=== PATIENT | female | born 1960 | race Hispanic/Latino ===

== ENCOUNTER 2017-01-13 13:12 | Observation (INO) | payer MEDICAID, OTHER ==
[2017-01-13 13:15] VITALS: BMI 26.5
[2017-01-13] MEDS ORDERED: Albuterol-Ipratrop 3 mg / 0.5 (3 ml) UD IH STA (14:05)
[2017-01-13 14:15] LABS: VENOUS BLOOD GAS BASE EXCESS 2.8 mmol/L (0.0-2.0); VENOUS BLOOD PH 7.36 (7.32-7.43)
--- NOTE | 2017-01-13 14:15 | ED PDOC ---
Arrival/HPI - General Chief Complaint: Chest Pain Time Seen by Provider: 01/13/17 13:35 - History of Present Illness Narrative History of Present Illness (Text): 01/13/17 13:40 A 56 year old female, whose history includes COPD, CHF, CAD, and early dementia , presents to the emergency department for intermittent "squeezing sharp" midsternal chest pain non-radiating, which began 3 days ago. The patient states the pain comes last for a few minutes then goes away. She admits to having a chronic cough and shortness of breath that worsens with cough.The patient also reports hot flashes to her face that make her dizzy and a headache for 2 weeks. She notes numbness to her left fingers which occurred only once and has already resolved itself. bilateral leg pain and swelling, but denies vomiting, diarrhea , fever, or any other complaints at this time. She admits to taking Motrin for the pain, but has not had any improvement. PMD: Dr. Szymanski in [facility] Time/Duration: < week (x 3 days ) Symptom Onset: Sudden Symptom Course: Unchanged, Intermittent Quality: Other ("squeezing sharp pain") Activities at Onset: Rest, Light Context: Home Past Medical History - Provider Review Nursing Documentation Reviewed: Yes - Infectious Disease Hx of Infectious Diseases: None - Reproductive Menopause: Yes - Cardiac Hx Cardiac Disorders: Yes Hx Congestive Heart Failure: Yes - Pulmonary Hx Respiratory Disorders: No - Neurological Hx Neurological Disorder: No - HEENT Hx HEENT Disorder: No - Renal Hx Renal Disorder: No - Endocrine/Metabolic Hx Endocrine Disorders: No - Hematological/Oncological Hx Blood Disorders: No - Integumentary Hx Dermatological Disorder: No - Musculoskeletal/Rheumatological Hx Musculoskeletal Disorders: No - Gastrointestinal Hx Gastrointestinal Disorders: No - Genitourinary/Gynecological Hx Genitourinary Disorders: No - Psychiatric Hx Psychophysiologic Disorder: No Hx Substance Use: No - Surgical History Hx Appendectomy: Yes (40 years ago) Hx Cardiac Catheterization: Yes (2010) Other/Comment: 28 years ago - Anesthesia Hx Anesthesia: No Hx Anesthesia Reactions: No Hx Malignant Hyperthermia: No Family/Social History - Physician Review Nursing Documentation Reviewed: Yes Family/Social History: No Known Family HX Smoking Status: Former Smoker Hx Alcohol Use: No Hx Substance Use: No Allergies/Home Meds Allergies/Adverse Reactions: Allergies Penicillins Allergy (Verified 01/13/17 14:03) ANGIOEDEMA Home Medications: Home Meds Medication Instructions Recorded Confirmed Aspirin 81 mg PO DAILY 11/06/14 01/13/17 Review of Systems - Physician Review All systems were reviewed & negative as marked: Yes - Review of Systems Constitutional: Other (hot flashes to face) Respiratory: Cough Cardiovascular: Chest Pain (intermittent midsternal chest pain non radiating) Gastrointestinal: absent: Diarrhea, Vomiting Musculoskeletal: Other (bilateral leg and ankle pain with swelling ) Neurological: Dizziness (with hot flashes) Physical Exam Vital Signs Reviewed: Yes Vital Signs Temp Pulse Resp BP Pulse Ox 01/13/17 15:27 62 18 124/70 97 01/13/17 14:30 73 16 145/77 98 01/13/17 14:17 150/78 01/13/17 13:27 98.2 F 78 18 150/78 98 01/13/17 13:15 98.3 F 96 H 20 171/82 H 97 Temperature: Afebrile Blood Pressure: Hypertensive Pulse: Tachycardic Respiratory Rate: Normal Appearance: Positive for: Well-Appearing, Non-Toxic, Comfortable Pain Distress: None Mental Status: Positive for: Alert and Oriented X 3 - Systems Exam Head: Present: Atraumatic, Normocephalic Pupils: Present: PERRL Extroacular Muscles: Present: EOMI Conjunctiva: Present: Normal Mouth: Present: Moist Mucous Membranes Pharnyx: Present: Normal Neck: Present: Normal Range of Motion Respiratory/Chest: Present: Good Air Exchange, Rales (? rales vs rhonchi), Rhonchi (right lung field ). No: Respiratory Distress, Accessory Muscle Use Cardiovascular: Present: Regular Rate and Rhythm, Normal S1, S2. No: Murmurs Abdomen: Present: Normal Bowel Sounds. No: Tenderness, Distention, Peritoneal Signs Back: Present: Normal Inspection Upper Extremity: Present: Normal Inspection. No: Cyanosis, Edema Lower Extremity: Present: Normal Inspection. No: Edema Neurological: Present: GCS=15, CN II-XII Intact, Speech Normal Skin: Present: Warm, Dry, Normal Color. No: Rashes Psychiatric: Present: Alert, Oriented x 3, Normal Insight, Normal Concentration Medical Decision Making ED Course and Treatment: 01/13/17 14:00 Impression: A 56 year old female with chest pain, cough, headache Differential Diagnosis included but are not limited to: Chest Pain r/o ACS vs COPD vs CHF vs PNA Plan: -- VBG -- EKG -- Chest X-ray -- Labs -- Duoneb, Lasix, Solu-medrol -- Reassess and disposition Prior Visits: Notes and results from previous visits were reviewed. Patient was last seen in the emergency department on Progress Notes: 01/13/17 14:10 EKG: Ordered, reviewed, and independently interpreted the EKG. Rate : 70 BPM Rhythm : NSR Interpretation : No ST-segment elevations or depressions, no T-wave inversions, normal intervals. 01/13/17 14:36 Chest X-ray Chest X-ray interpreted by me is normal with no findings. Patient started having a headache in the ED with blurry vision. CT head was ordered. NIHSS documented is still zero. 01/13/17 15:37 Patient's CXR was negative for PNA. Lungs on reevaluation were clear. Patient's CT head negative. Neuro exam unchanged. Aspirin given. Case discussed with Dr. Heaton who will accept admission. - Lab Interpretations Lab Results: 01/13/17 13:30 01/13/17 13:30 Lab Results 01/13/17 13:30: Sodium 140, Chloride 103, Potassium 3.8, Carbon Dioxide 30, Anion Gap 11, BUN 19, Creatinine 0.7, Est GFR ( Amer) > 60, Est GFR (Non- Af Amer) > 60, Random Glucose 100, Calcium 9.7, Lactate Dehydrogenase 444, Total Creatine Kinase 83, Troponin I < 0.01, NT-Pro-B Natriuret Pep 92.5 01/13/17 13:30: pO2 50, VBG pH 7.36, VBG pCO2 52.0, VBG HCO3 29.4 H, VBG Total CO2 31.0 H, VBG O2 Sat (Calc) 88.0 H, VBG Base Excess 2.8 H, VBG Potassium 3.9, Sodium 140.0, Chloride 105.0, Glucose 99, Lactate 1.3, FiO2 21.0, Venous Blood Potassium 3.9 01/13/17 13:30: WBC 8.1 D, RBC 4.31, Hgb 12.9, Hct 38.8, MCV 90.0, MCH 29.9, MCHC 33.2, RDW 13.0, Plt Count 335, MPV 9.3, Gran % 55.8, Lymph % (Auto) 34.9, [place] % (Auto) 6.3 H, Eos % (Auto) 2.6, Baso % (Auto) 0.4, Gran # 4.52, Lymph # 2.8, [place] # 0.5, Eos # 0.2, Baso # 0.03 - RAD Interpretation Radiology Orders: 01/13/17 14:04 CHEST PORTABLE [RAD] Stat 01/13/17 14:34 HEAD W/O CONTRAST [CT] Stat - Medication Orders Current Medication Orders: Acetaminophen (Tylenol 325mg Tab) 650 mg PO Q6H PRN PRN Reason: Fever >100.4 F Last Admin: 01/13/17 21:36 Dose: 650 mg Albuterol/Ipratropium (Duoneb 3 Mg/0.5 Mg (3 Ml) Ud) 3 ml IH [id number] MANOJ Last Admin: 01/13/17 19:40 Dose: 3 ml Aspirin (Aspirin Chewable) 81 mg PO DAILY MANOJ Enoxaparin Sodium (Lovenox) 30 mg SC DAILY MANOJ PRN Reason: Protocol Famotidine (Pepcid) 40 mg PO HS MANOJ Last Admin: 01/13/17 21:36 Dose: 40 mg Discontinued Medications Albuterol/Ipratropium (Duoneb 3 Mg/0.5 Mg (3 Ml) Ud) 3 ml IH STAT STA Stop: 01/13/17 14:06 Last Admin: 01/13/17 14:18 Dose: 3 ml Aspirin (Ecotrin) 162 mg PO STAT STA Stop: 01/13/17 16:39 Last Admin: 01/13/17 16:47 Dose: 162 mg Furosemide (Lasix) 40 mg IVP STAT STA Stop: 01/13/17 14:04 Last Admin: 01/13/17 14:17 Dose: 40 mg MAR Blood Pressure Document 01/13/17 14:17 SE (Rec: 01/13/17 14:18 [id number]) Blood Pressure Blood Pressure (100/60-150/90) 150/78 IVP Administration Document 01/13/17 14:17 SE (Rec: 01/13/17 14:18 [id number]) Charges for Administration # of IVP Administrations 1 Ketorolac Tromethamine (Toradol) 30 mg IVP STAT STA Stop: 01/13/17 15:41 Last Admin: 01/13/17 15:45 Dose: 30 mg MAR Pain Assessment Document 01/13/17 15:45 SE (Rec: 01/13/17 15:49 SE [id number]) Pain Reassessment Is this a pain reassessment? No Sleep Is patient sleeping during reassessment? No Presence of Pain Presence of Pain Yes Pain Scale Used Pain Scale Used Numeric Location Pain Location Body Architectural Modeler IVP Administration Document 01/13/17 15:45 SE (Rec: 01/13/17 15:49 SE [id number]) Charges for Administration # of IVP Administrations 1 Methylprednisolone (Solu-Medrol) 125 mg IVP STAT STA Stop: 01/13/17 14:04 Last Admin: 01/13/17 14:18 Dose: 125 mg IVP Administration Document 01/13/17 14:18 SE (Rec: 01/13/17 14:18 SE [id number]) Charges for Administration # of IVP Administrations 1 Metoclopramide HCl (Reglan) 10 mg IVP STAT STA Stop: 01/13/17 15:41 Last Admin: 01/13/17 15:50 Dose: 10 mg IVP Administration Document 01/13/17 15:50 SE (Rec: 01/13/17 15:50 SE [id number]) Charges for Administration # of IVP Administrations 1 NIHSS Scale (Rosanky) Time Performed: 13:40 - How Severe is the Stoke Baseline Level of Consciousness: 0=Alert LOC to Questions: 0=Both comments correct LOC to commands: 0=Obeys both correctly Best Gaze: 0=Normal Visual: 0=No visual loss Facial: 0=Normal Motor Arm - Left: 0=No drift Motor Arm - Right: 0=No drift Motor Leg - Left: 0=No drift Motor Leg - Right: 0=No drift Limb Ataxia: 0=Absent Sensory: 0=Normal Best Language: 0=No aphasia Dysarthia: 0=Normal articulation Extinction & Inattention (Neglect): 0=Normal, no object Score: 0 Risk Level: No Stroke Risk - Scribe Statement The provider has reviewed the documentation as recorded by the Jaz Drew Provider Scribe Attestation: All medical record entries made by the Jaz were at my direction and personally dictated by me. I have reviewed the chart and agree that the record accurately reflects my personal performance of the history, physical exam, medical decision making, and the department course for this patient. I have also personally directed, reviewed, and agree with the discharge instructions and disposition. Disposition/Present on Arrival - Present on Arrival Any Indicators Present on Arrival: No History of DVT/PE: No History of Uncontrolled Diabetes: No Urinary Catheter: No History of Decub. Ulcer: No History Surgical Site Infection Following: None - Disposition Have Diagnosis and Disposition been Completed?: Yes Diagnosis: COPD (chronic obstructive pulmonary disease), Chest pain, Headache Disposition: HOSPITALIZED Disposition Time: 15:37 Patient Plan: Admission Condition: GUARDED
[2017-01-13 14:25] LABS: BLOOD UREA NITROGEN 19 mg/dL (7-21); CALCIUM 9.7 mg/dL (8.4-10.5); CARBON DIOXIDE 30 mmol/L (21-33); CHLORIDE 103 mmol/L (98-107); GFR AFRICAN-AMERICAN > 60; GLUCOSE,RANDOM 100 mg/dL (70-110); POTASSIUM 3.8 mmol/L (3.6-5.0); SODIUM 140 mmol/L (132-148)
[2017-01-13 14:36] LABS: BASO # 0.03 K/mm3 (0.0-2.0); BASO % 0.4 % (0.0-3.0); EOS # 0.2 (0.0-0.7); EOS % 2.6 % (1.5-5.0); GRAN # 4.52 (1.4-6.5); GRAN % 55.8 % (50.0-68.0); HEMATOCRIT 38.8 % (36.0-48.0); LYMPH # 2.8 (1.2-3.4); LYMPH % 34.9 % (22.0-35.0); MEAN CORPUSCULAR HEMOGLOBIN 29.9 pg (25.0-35.0); MEAN CORPUSCULAR HGB CONC 33.2 g/dl (31.0-37.0); MEAN PLATELET VOLUME 9.3 fl (7.0-11.0); MONO # 0.5 (0.1-0.6); MONO % 6.3 % (1.0-6.0); WHITE BLOOD COUNT 8.1 10^3/ul (4.5-11.0)
[2017-01-13 14:43] LABS: TROPONIN I < 0.01 ng/mL
--- NOTE | 2017-01-13 15:16 | RAD ---
HISTORY: chest pain, sob COMPARISON: 11/06/2014 FINDINGS: LUNGS: No active pulmonary disease. PLEURA: No significant pleural effusion identified, no pneumothorax apparent. CARDIOVASCULAR: Normal. OSSEOUS STRUCTURES: No significant abnormalities. VISUALIZED UPPER ABDOMEN: Normal. OTHER FINDINGS: None. IMPRESSION: No active disease.
--- NOTE | 2017-01-13 15:29 | CT ---
PROCEDURE: CT HEAD WITHOUT CONTRAST. HISTORY: headache COMPARISON: None available. TECHNIQUE: Axial computed tomography images were obtained through the head/brain without intravenous contrast. Radiation dose: Total exam DLP = 629 mGy-cm. This CT exam was performed using one or more of the following dose reduction techniques: Automated exposure control, adjustment of the mA and/or kV according to patient size, and/or use of iterative reconstruction technique. FINDINGS: HEMORRHAGE: No intracranial hemorrhage. BRAIN: No mass effect or edema. No atrophy or chronic microvascular ischemic changes. VENTRICLES: Unremarkable. No hydrocephalus. CALVARIUM: Unremarkable. PARANASAL SINUSES: Unremarkable as visualized. No significant inflammatory changes. MASTOID AIR CELLS: Unremarkable as visualized. No inflammatory changes. OTHER FINDINGS: None. IMPRESSION: No acute findings
--- NOTE | 2017-01-13 17:10 | CP.PCM.HP ---
<Liv Dye - Last Filed: 01/13/17 17:06> History of Present Illness - History of Present Illness History of Present Illness: CC: I have chest pain, headache and leg pain and swelling. Patient is a 56 y/o F with PMH of COPD, CAD? CHF? Dyslipidemia presenting to [facility] with sharp substernal chest pain for 3 days. Patient states the chest pain last seconds when its there, non radiating, non reproducible. Patient states she has been experiencing head ache on/off relieved with ibuprofen for 3 days. Patient's daughter was at the bed side, states patient actually has been complaining of the headache for 2 weeks. Patient also complaints lower extremities edema and pain. States the pain is mostly at the dorsal aspect of the legs, and hurt when she stands up. Patient denies pillow orthpnea, denies exertional dyspnea. Patient states she only gets short of breath after walking multiple blocks. Patient had stress test and cardiac cath at [facility] in 2011 and was told it was normal. Patient was at [facility] back in 2014, with normal echo and had lipid of 231. Patient took 81 mg of aspirin this AM. This history of htn, diabetes. Doesn't take any medications for the dyslipidemia. Patient states she has chronic dry cough due to her copd. ROS: Denies weakness, dizziness, palpitations, night sweats, n/v/d, fever or chills. Admits to increased in urinary frequency, Denies dysurea. In the ED, patient had an episode of htn with BP of 171/82, labs were normal, including normal pro bnp and troponin. Patient was giving duoneb treatment, aspirin, and Lasix. PMH: COPD, questionable CAD and CHF. PSH: , appendectomy, cardiac cath. FMH: Mom and dad from CVA and CHF, Bother has DM, brother and sister had CAD and CABG in their 50s and 60s. Social: former tobacco abuse, quit 12 years ago, denies alcohol, or illicit drug use. Lives with daughter. Allergy: penicillins Home meds: ventolin, advair Present on Admission - Present on Admission Any Indicators Present on Admission: No History of DVT/PE: No History of Uncontrolled Diabetes: No Urinary Catheter: No Decubitus Ulcer Present: No History Surgical Site Infection Following: None Review of Systems - Review of Systems All systems: reviewed and no additional remarkable complaints except Review of Systems: As per HPI. Past Patient History - Infectious Disease Hx of Infectious Diseases: None - Tetanus Immunizations Tetanus Immunization: Unknown - Past Medical History & Family History Past Medical History?: Yes - Past Social History Smoking Status: Former Smoker Alcohol: None Drugs: Denies Home Situation {Lives}: With Family - CARDIAC Hx Cardiac Disorders: Yes Hx Congestive Heart Failure: Yes - PULMONARY Hx Respiratory Disorders: No - NEUROLOGICAL Hx Neurological Disorder: No - HEENT Hx HEENT Problems: No - RENAL Hx Chronic Kidney Disease: No - ENDOCRINE/METABOLIC Hx Endocrine Disorders: No - HEMATOLOGICAL/ONCOLOGICAL Hx Blood Disorders: No - INTEGUMENTARY Hx Dermatological Problems: No - MUSCULOSKELETAL/RHEUMATOLOGICAL Hx Musculoskeletal Disorders: No - GASTROINTESTINAL Hx Gastrointestinal Disorders: No - GENITOURINARY/GYNECOLOGICAL Hx Genitourinary Disorders: No - PSYCHIATRIC Hx Psychophysiologic Disorder: No Hx Substance Use: No - SURGICAL HISTORY Hx Appendectomy: Yes (40 years ago) Hx Cardiac Catheterization: Yes (2010) Other/Comment: 28 years ago - ANESTHESIA Hx Anesthesia: No Hx Anesthesia Reactions: No Hx Malignant Hyperthermia: No Meds Home Medications: Home Medication List Medication Instructions Recorded Confirmed Type Albuterol HFA [Ventolin HFA 90 0.09 mg IH Q6H PRN #1 puff 01/14/17 Rx mcg/actuation (8 g)] Aspirin [Aspirin Chewable] 81 mg PO DAILY chew 01/14/17 Rx Atorvastatin [Lipitor] 10 mg PO DIN #7 tab 01/14/17 Rx Fluticasone/Salmeterol [Advair 1 each IH Q12H #1 blst.w.dev 01/14/17 Rx 250-50 Diskus] Furosemide [Lasix] 20 mg PO DAILY #7 tablet 01/14/17 Rx Allergies/Adverse Reactions: Allergies Allergy/AdvReac Type Severity Reaction Status Date / Time Penicillins Allergy ANGIOEDEMA Verified 01/13/17 14:03 Physical Exam - Constitutional Appears: No Acute Distress - Head Exam Head Exam: ATRAUMATIC, NORMAL INSPECTION, NORMOCEPHALIC - Eye Exam Eye Exam: EOMI, Normal appearance, PERRL. absent: Scleral icterus Pupil Exam: NORMAL ACCOMODATION, PERRL - ENT Exam ENT Exam: Mucous Membranes Dry - Neck Exam Neck exam: Positive for: Normal Inspection - Respiratory Exam Respiratory Exam: Clear to Auscultation Bilateral, NORMAL BREATHING PATTERN. absent: Rales, Rhonchi, Wheezes, Respiratory Distress, Stridor - Cardiovascular Exam Cardiovascular Exam: REGULAR RHYTHM, RRR, +S1, +S2. absent: Bradycardia, Tachycardia, Irregular Rhythm, Systolic Murmur - GI/Abdominal Exam GI & Abdominal Exam: Normal Bowel Sounds, Soft. absent: Distended, Firm, Guarding, Organomegaly, Rebound, Tenderness - Extremities Exam Extremities exam: Positive for: full ROM, normal capillary refill, normal inspection, pedal pulses present. Negative for: calf tenderness, joint swelling , pedal edema, tenderness - Back Exam Back exam: NORMAL INSPECTION. absent: tenderness, vertebral tenderness - Neurological Exam Neurological exam: Alert, CN II-XII Intact, Normal Gait, Oriented x3, Reflexes Normal Additional comments: No motor sensory deficit in the upper and lower extremities leeanne. - Psychiatric Exam Psychiatric exam: Normal Affect, Normal Mood - Skin Skin Exam: Dry, Intact, Normal Color, Warm Results - Vital Signs Recent Vital Signs: Last Vital Signs Temp 98.2 F 01/13/17 13:27 Pulse 62 01/13/17 15:27 Resp 18 01/13/17 15:27 BP 124/70 01/13/17 15:27 Pulse Ox 97 01/13/17 15:27 - Labs Result Diagrams: 01/13/17 13:30 01/13/17 13:30 - EKG Data EKG Interpreted by: Myself EKG shows normal: Sinus rhythm Rate: Normal (No specific ST/T waves changes. ) Assessment & Plan - Assessment and Plan (Free Text) Assessment: Patient is a 56 y/o with PMH of COPD, questionable CAD and CHF, former tobacco abuse presenting with substernal chest pain, headache and lower extremities edema. Plan: 1) Atypical chest pain - R/O ACS - troponin negative x1, will continue to trend - Ekg with no ST waves elevation or depression, will trend. - No acute finding on chest x-ray. - monitor on tele - will obtain tsh and lipid panel - s/p a dose of asa in the ER - Cardio consulted - Will obtain echo 2) Headache, r/o cva, r/o hypertensive urgency - currently resolved - CT head in the ED with no acute changes - Tylenol prn for headache. - Repeat BP normal, will monitor and start htn meds prn. 3) Subjective lower extremities edema - no lower extremities noted on physical exam, and pro bnp is normal - Will continue to monitor for now 4) h/o dyslipidemia - will obtain lipid panel 5) COPD- stable, duoneb q6hs 6) DVT/GI prophylaxis: Lovenox sc and Pepcid. Patient seen, examined and case discussed with Dr Lyons. - Date & Time Date: 01/13/17 Time: 16:45 <Akhil Alex - Last Filed: 01/14/17 18:12> Results - Vital Signs Recent Vital Signs: Last Vital Signs Temp 97.6 F 01/14/17 16:51 Pulse 75 01/14/17 16:51 Resp 20 01/14/17 16:51 BP 109/60 01/14/17 17:33 Pulse Ox 96 01/14/17 16:51 - Labs Result Diagrams: 01/14/17 03:00 01/14/17 03:00 Labs: Laboratory Results - last 24 hr 01/13/17 01/13/17 01/13/17 18:56 19:00 19:24 WBC RBC Hgb Hct MCV MCH MCHC RDW Plt Count MPV Gran % Lymph % (Auto) [place] % (Auto) Eos % (Auto) Baso % (Auto) Gran # Lymph # [place] # Eos # Baso # D-Dimer, Quantitative Sodium Potassium Chloride Carbon Dioxide Anion Gap BUN Creatinine Est GFR ( Amer) Est GFR (Non-Af Amer) Random Glucose Calcium Total Bilirubin AST ALT Alkaline Phosphatase Troponin I < 0.01 Total Protein Albumin Globulin Albumin/Globulin Ratio Triglycerides Cholesterol LDL Cholesterol Direct HDL Cholesterol TSH 3rd Generation 0.61 Urine Opiates Screen Urine Methadone Screen Ur Barbiturates Screen Ur Phencyclidine Scrn Ur Amphetamines Screen U Benzodiazepines Scrn U Oth Cocaine Metabols U Cannabinoids Screen Influenza Typ A,B (EIA) Negative for flu a/b 01/14/17 01/14/17 01/14/17 03:00 03:00 03:00 WBC 8.2 RBC 4.31 Hgb 12.9 Hct 38.3 MCV 88.9 MCH 29.9 MCHC 33.7 RDW 13.1 Plt Count 348 MPV 9.4 Gran % 81.3 H Lymph % (Auto) 17.5 L [place] % (Auto) 1.2 Eos % (Auto) 0.0 L Baso % (Auto) 0.0 Gran # 6.70 H Lymph # 1.4 [place] # 0.1 Eos # 0.0 Baso # 0.00 D-Dimer, Quantitative Sodium 140 Potassium 4.2 Chloride 101 Carbon Dioxide 29 Anion Gap 14 BUN 22 H Creatinine 0.7 Est GFR ( Amer) > 60 Est GFR (Non-Af Amer) > 60 Random Glucose 156 H Calcium 9.9 Total Bilirubin 0.6 AST 28 ALT 28 Alkaline Phosphatase 118 Troponin I < 0.01 Total Protein 8.3 Albumin 4.4 Globulin 3.9 Albumin/Globulin Ratio 1.1 Triglycerides 40 Cholesterol 226 H LDL Cholesterol Direct 137 H HDL Cholesterol 71 H TSH 3rd Generation Urine Opiates Screen Urine Methadone Screen Ur Barbiturates Screen Ur Phencyclidine Scrn Ur Amphetamines Screen U Benzodiazepines Scrn U Oth Cocaine Metabols U Cannabinoids Screen Influenza Typ A,B (EIA) 01/14/17 01/14/17 14:00 14:20 WBC RBC Hgb Hct MCV MCH MCHC RDW Plt Count MPV Gran % Lymph % (Auto) [place] % (Auto) Eos % (Auto) Baso % (Auto) Gran # Lymph # [place] # Eos # Baso # D-Dimer, Quantitative < 200 Sodium Potassium Chloride Carbon Dioxide Anion Gap BUN Creatinine Est GFR ( Amer) Est GFR (Non-Af Amer) Random Glucose Calcium Total Bilirubin AST ALT Alkaline Phosphatase Troponin I Total Protein Albumin Globulin Albumin/Globulin Ratio Triglycerides Cholesterol LDL Cholesterol Direct HDL Cholesterol TSH 3rd Generation Urine Opiates Screen Negative Urine Methadone Screen Negative Ur Barbiturates Screen Negative Ur Phencyclidine Scrn Negative Ur Amphetamines Screen Negative U Benzodiazepines Scrn Negative U Oth Cocaine Metabols Negative U Cannabinoids Screen Negative Influenza Typ A,B (EIA) Attending/Attestation - Attestation I have personally seen and examined this patient.: Yes I have fully participated in the care of the patient.: Yes I have reviewed all pertinent clinical information: Yes Notes (Text): I have seen and examined the patient at bedside. Agree with the above note with the following additions/ exceptions: Briefly this is 56 year old female with history of COPD, CAD? CHF? Dyslipidemia who presented today for evaluation of CP. Patient will be observed in telemetry. She had normal cardiac cath at [facility] in 2010 and had normal echo in 2014. Patient has strong FH of CAD. Last time she smoked was 12 years ago. Patient suffers from frequent COPD exacerbations which is being managed by PMD. We will monitor serial cardiac iso , ekg, lipid panel, echo and cardiology consult. Discussed in detail with the patient and her daughter who is EMT. Upon discharge patient will follow up with PMD of choice or [facility] clinic. Dr Akhil Alex
[2017-01-13] MEDS: Albuterol-Ipratrop 3 mg / 0.5 (3 ml) UD IH SCH (19:40)
[2017-01-14] MEDS: Albuterol-Ipratrop 3 mg / 0.5 (3 ml) UD IH SCH ×3 (01:49→13:30)
[2017-01-14 03:30] LABS: ALB/GLOB RATIO 1.1 (1.1-1.8); ALKALINE PHOSPHATASE 118 U/L (38-126); ALT/SGPT 28 U/L (7-56); AST/SGOT 28 U/L (14-36); BILIRUBIN,TOTAL 0.6 mg/dL (0.2-1.3); BLOOD UREA NITROGEN 22 mg/dL (7-21); CALCIUM 9.9 mg/dL (8.4-10.5); CARBON DIOXIDE 29 mmol/L (21-33); CHLORIDE 101 mmol/L (98-107); CHOLESTEROL 226 mg/dL (130-200); GFR AFRICAN-AMERICAN > 60; GLUCOSE,RANDOM 156 mg/dL (70-110); POTASSIUM 4.2 mmol/L (3.6-5.0); SODIUM 140 mmol/L (132-148); TOTAL PROTEIN 8.3 g/dL (5.8-8.3)
[2017-01-14 04:00] LABS: GRAN # 6.7 (1.4-6.5); GRAN % 81.3 % (50.0-68.0); HEMATOCRIT 38.3 % (36.0-48.0); LYMPH # 1.4 (1.2-3.4); LYMPH % 17.5 % (22.0-35.0); MEAN CELL VOLUME 88.9 fl (80.0-105.0); MEAN CORPUSCULAR HEMOGLOBIN 29.9 pg (25.0-35.0); MEAN CORPUSCULAR HGB CONC 33.7 g/dl (31.0-37.0); MEAN PLATELET VOLUME 9.4 fl (7.0-11.0); MONO # 0.1 (0.1-0.6); MONO % 1.2 % (1.0-6.0); RED CELL DISTRIBUTION WIDTH 13.1 % (11.5-14.5); WHITE BLOOD COUNT 8.2 10^3/ul (4.5-11.0)
[2017-01-14 09:46] VITALS: RESP 20; TEMP 97.6
--- NOTE | 2017-01-14 09:56 | CARD ---
APPROVED REPORT EKG Measurement Heart [id number] <Conclusion> Normal sinus rhythm Normal ECG
[2017-01-14] MEDS ORDERED: Enoxaparin 30 mg Syringe SC SCH (10:00)
--- NOTE | 2017-01-14 14:58 | CP.PCM.DIS ---
<Carlos Monae - Last Filed: 01/14/17 16:22> Provider - Provider Date of Admission: 01/13/17 15:37 Attending physician: Akhil Alex MD Primary care physician: NO PRIMARY CARE PROVIDER Consults: Cardio - Dr. White Time Spent in preparation of Discharge (in minutes): 45 Diagnosis - Discharge Diagnosis (1) COPD (chronic obstructive pulmonary disease) Status: Chronic Priority: Low (2) Chest pain Status: Acute Priority: Low (3) CHF (congestive heart failure) Status: Chronic Priority: Low Hospital Course - Lab Results Lab Results: Most Recent Lab Values WBC 8.2 10^3/ul (4.5-11.0) 01/14/17 03:00 RBC 4.31 10^6/uL (3.5-6.1) 01/14/17 03:00 Hgb 12.9 g/dL (12.0-16.0) 01/14/17 03:00 Hct 38.3 % (36.0-48.0) 01/14/17 03:00 MCV 88.9 fl (80.0-105.0) 01/14/17 03:00 MCH 29.9 pg (25.0-35.0) 01/14/17 03:00 MCHC 33.7 g/dl (31.0-37.0) 01/14/17 03:00 RDW 13.1 % (11.5-14.5) 01/14/17 03:00 Plt Count 348 10^3/uL (120.0-450.0) 01/14/17 03:00 MPV 9.4 fl (7.0-11.0) 01/14/17 03:00 Gran % 81.3 % (50.0-68.0) H 01/14/17 03:00 Lymph % (Auto) 17.5 % (22.0-35.0) L 01/14/17 03:00 Harney % (Auto) 1.2 % (1.0-6.0) 01/14/17 03:00 Eos % (Auto) 0.0 % (1.5-5.0) L 01/14/17 03:00 Baso % (Auto) 0.0 % (0.0-3.0) 01/14/17 03:00 Gran # 6.70 (1.4-6.5) H 01/14/17 03:00 Lymph # 1.4 (1.2-3.4) 01/14/17 03:00 Harney # 0.1 (0.1-0.6) 01/14/17 03:00 Eos # 0.0 (0.0-0.7) 01/14/17 03:00 Baso # 0.00 K/mm3 (0.0-2.0) 01/14/17 03:00 D-Dimer, Quantitative < 200 ng/mL (0-243) 01/14/17 14:00 pO2 50 mm/Hg (30-55) 01/13/17 13:30 VBG pH 7.36 (7.32-7.43) 01/13/17 13:30 VBG pCO2 52.0 (40-60) 01/13/17 13:30 VBG HCO3 29.4 mmol/l (21-28) H 01/13/17 13:30 VBG Total CO2 31.0 mmol.L (22-28) H 01/13/17 13:30 VBG O2 Sat (Calc) 88.0 % (40-65) H 01/13/17 13:30 VBG Base Excess 2.8 mmol/L (0.0-2.0) H 01/13/17 13:30 VBG Potassium 3.9 mmol/L (3.6-5.2) 01/13/17 13:30 Sodium 140.0 mmol/L (132-148) 01/13/17 13:30 Chloride 105.0 mmol/L (98-107) 01/13/17 13:30 Glucose 99 mg/dl (65-105) 01/13/17 13:30 Lactate 1.3 mmol/L (0.7-2.1) 01/13/17 13:30 FiO2 21.0 % 01/13/17 13:30 Sodium 140 mmol/L (132-148) 01/14/17 03:00 Potassium 4.2 mmol/L (3.6-5.0) 01/14/17 03:00 Chloride 101 mmol/L (98-107) 01/14/17 03:00 Carbon Dioxide 29 mmol/L (21-33) 01/14/17 03:00 Anion Gap 14 (10-20) 01/14/17 03:00 BUN 22 mg/dL (7-21) H 01/14/17 03:00 Creatinine 0.7 mg/dl (0.7-1.2) 01/14/17 03:00 Est GFR ( Amer) > 60 01/14/17 03:00 Est GFR (Non-Af Amer) > 60 01/14/17 03:00 Random Glucose 156 mg/dL (70-110) H 01/14/17 03:00 Calcium 9.9 mg/dL (8.4-10.5) 01/14/17 03:00 Total Bilirubin 0.6 mg/dL (0.2-1.3) 01/14/17 03:00 AST 28 U/L (14-36) 01/14/17 03:00 ALT 28 U/L (7-56) 01/14/17 03:00 Alkaline Phosphatase 118 U/L (38-126) 01/14/17 03:00 Lactate Dehydrogenase 444 U/L (333-699) 01/13/17 13:30 Total Creatine Kinase 83 U/L (35-230) 01/13/17 13:30 Troponin I < 0.01 ng/mL 01/14/17 03:00 NT-Pro-B Natriuret Pep 92.5 pg/mL (0-450) 01/13/17 13:30 Total Protein 8.3 g/dL (5.8-8.3) 01/14/17 03:00 Albumin 4.4 g/dL (3.0-4.8) 01/14/17 03:00 Globulin 3.9 gm/dL 01/14/17 03:00 Albumin/Globulin Ratio 1.1 (1.1-1.8) 01/14/17 03:00 Triglycerides 40 mg/dL (35-160) 01/14/17 03:00 Cholesterol 226 mg/dL (130-200) H 01/14/17 03:00 LDL Cholesterol Direct 137 mg/dL (0-129) H 01/14/17 03:00 HDL Cholesterol 71 mg/dL (29-60) H 01/14/17 03:00 TSH 3rd Generation 0.61 mIU/mL (0.46-4.68) 01/13/17 19:00 Venous Blood Potassium 3.9 mmol/L (3.6-5.2) 01/13/17 13:30 Influenza Typ A,B (EIA) Negative for flu a/b (NEGATIVE) 01/13/17 18:56 - Hospital Course Hospital Course: 56 y/o with PMH of COPD, questionable CAD and CHF, and former tobacco abuse presenting with atypical chest pain, headache, and lower extremity edema. Pt had troponins negative x3. EKG with no ST changes. Chest x-ray was normal with no active disease. Patient had CT head which showed no acute abnormalities. Pt was found to have elevated cholesterol and LDL on lipid panel and was started on Lipitor 10 mg daily. Pt had echocardiogram performed which showed mild diastolic dysfunction (please see official report). Pt was examined by boot repairer, Dr. White, who recommended a D-dimer and UDS. Both were found to be negative. Cardiology recommended patient be discharged on Lasix 20 mg daily. Pt will follow up with PMD and cardiology. Discharge Exam - Head Exam Head Exam: ATRAUMATIC, NORMAL INSPECTION, NORMOCEPHALIC - Respiratory Exam Respiratory Exam: NORMAL BREATHING PATTERN, UNREMARKABLE - Cardiovascular Exam Cardiovascular Exam: RRR, +S1, +S2 - GI/Abdominal Exam GI & Abdominal Exam: Normal Bowel Sounds, Soft. absent: Tenderness - Extremities Exam Extremities exam: normal inspection - Neurological Exam Neurological exam: Alert, CN II-XII Intact, Oriented x3 - Psychiatric Exam Psychiatric exam: Normal Affect, Normal Mood - Skin Skin Exam: Intact, Normal Color, Warm Discharge Plan - Discharge Medications Prescriptions: Albuterol HFA [Ventolin HFA 90 mcg/actuation (8 g)] 0.09 mg IH Q6H PRN #1 puff PRN Reason: Shortness Of Breath Atorvastatin [Lipitor] 10 mg PO DIN #7 tab Fluticasone/Salmeterol [Advair 250-50 Diskus] 1 each IH Q12H #1 blst.w.dev Furosemide [Lasix] 20 mg PO DAILY #7 tablet - Follow Up Plan Condition: GUARDED Disposition: HOME/ ROUTINE Instructions: Chest Pain (DC) Additional Instructions: Follow up with PMD within 1 week Follow up with boot repairer Take Lasix and Lipitor as prescribed Please return to hospital if symptoms reoccur or worsen Referrals: PCP,NO [Primary Care Provider] - Acuna,Archana A, ENVIRONMENT ARTIST-C [Advanced Practice Nurse] - <Akhil Alex - Last Filed: 01/14/17 18:17> Provider - Provider Date of Admission: 01/13/17 15:37 Attending physician: Akhil Alex MD Primary care physician: NO PRIMARY CARE PROVIDER Hospital Course - Lab Results Lab Results: Most Recent Lab Values WBC 8.2 10^3/ul (4.5-11.0) 01/14/17 03:00 RBC 4.31 10^6/uL (3.5-6.1) 01/14/17 03:00 Hgb 12.9 g/dL (12.0-16.0) 01/14/17 03:00 Hct 38.3 % (36.0-48.0) 01/14/17 03:00 MCV 88.9 fl (80.0-105.0) 01/14/17 03:00 MCH 29.9 pg (25.0-35.0) 01/14/17 03:00 MCHC 33.7 g/dl (31.0-37.0) 01/14/17 03:00 RDW 13.1 % (11.5-14.5) 01/14/17 03:00 Plt Count 348 10^3/uL (120.0-450.0) 01/14/17 03:00 MPV 9.4 fl (7.0-11.0) 01/14/17 03:00 Gran % 81.3 % (50.0-68.0) H 01/14/17 03:00 Lymph % (Auto) 17.5 % (22.0-35.0) L 01/14/17 03:00 Harney % (Auto) 1.2 % (1.0-6.0) 01/14/17 03:00 Eos % (Auto) 0.0 % (1.5-5.0) L 01/14/17 03:00 Baso % (Auto) 0.0 % (0.0-3.0) 01/14/17 03:00 Gran # 6.70 (1.4-6.5) H 01/14/17 03:00 Lymph # 1.4 (1.2-3.4) 01/14/17 03:00 Harney # 0.1 (0.1-0.6) 01/14/17 03:00 Eos # 0.0 (0.0-0.7) 01/14/17 03:00 Baso # 0.00 K/mm3 (0.0-2.0) 01/14/17 03:00 D-Dimer, Quantitative < 200 ng/mL (0-243) 01/14/17 14:00 pO2 50 mm/Hg (30-55) 01/13/17 13:30 VBG pH 7.36 (7.32-7.43) 01/13/17 13:30 VBG pCO2 52.0 (40-60) 01/13/17 13:30 VBG HCO3 29.4 mmol/l (21-28) H 01/13/17 13:30 VBG Total CO2 31.0 mmol.L (22-28) H 01/13/17 13:30 VBG O2 Sat (Calc) 88.0 % (40-65) H 01/13/17 13:30 VBG Base Excess 2.8 mmol/L (0.0-2.0) H 01/13/17 13:30 VBG Potassium 3.9 mmol/L (3.6-5.2) 01/13/17 13:30 Sodium 140.0 mmol/L (132-148) 01/13/17 13:30 Chloride 105.0 mmol/L (98-107) 01/13/17 13:30 Glucose 99 mg/dl (65-105) 01/13/17 13:30 Lactate 1.3 mmol/L (0.7-2.1) 01/13/17 13:30 FiO2 21.0 % 01/13/17 13:30 Sodium 140 mmol/L (132-148) 01/14/17 03:00 Potassium 4.2 mmol/L (3.6-5.0) 01/14/17 03:00 Chloride 101 mmol/L (98-107) 01/14/17 03:00 Carbon Dioxide 29 mmol/L (21-33) 01/14/17 03:00 Anion Gap 14 (10-20) 01/14/17 03:00 BUN 22 mg/dL (7-21) H 01/14/17 03:00 Creatinine 0.7 mg/dl (0.7-1.2) 01/14/17 03:00 Est GFR ( Amer) > 60 01/14/17 03:00 Est GFR (Non-Af Amer) > 60 01/14/17 03:00 Random Glucose 156 mg/dL (70-110) H 01/14/17 03:00 Calcium 9.9 mg/dL (8.4-10.5) 01/14/17 03:00 Total Bilirubin 0.6 mg/dL (0.2-1.3) 01/14/17 03:00 AST 28 U/L (14-36) 01/14/17 03:00 ALT 28 U/L (7-56) 01/14/17 03:00 Alkaline Phosphatase 118 U/L (38-126) 01/14/17 03:00 Lactate Dehydrogenase 444 U/L (333-699) 01/13/17 13:30 Total Creatine Kinase 83 U/L (35-230) 01/13/17 13:30 Troponin I < 0.01 ng/mL 01/14/17 03:00 NT-Pro-B Natriuret Pep 92.5 pg/mL (0-450) 01/13/17 13:30 Total Protein 8.3 g/dL (5.8-8.3) 01/14/17 03:00 Albumin 4.4 g/dL (3.0-4.8) 01/14/17 03:00 Globulin 3.9 gm/dL 01/14/17 03:00 Albumin/Globulin Ratio 1.1 (1.1-1.8) 01/14/17 03:00 Triglycerides 40 mg/dL (35-160) 01/14/17 03:00 Cholesterol 226 mg/dL (130-200) H 01/14/17 03:00 LDL Cholesterol Direct 137 mg/dL (0-129) H 01/14/17 03:00 HDL Cholesterol 71 mg/dL (29-60) H 01/14/17 03:00 TSH 3rd Generation 0.61 mIU/mL (0.46-4.68) 01/13/17 19:00 Venous Blood Potassium 3.9 mmol/L (3.6-5.2) 01/13/17 13:30 Urine Opiates Screen Negative (NEGATIVE) 01/14/17 14:20 Urine Methadone Screen Negative (NEGATIVE) 11/25/17 14:20 Ur Barbiturates Screen Negative (NEGATIVE) 01/14/17 14:20 Ur Phencyclidine Scrn Negative (NEGATIVE) 01/14/17 14:20 Ur Amphetamines Screen Negative (NEGATIVE) 01/14/17 14:20 U Benzodiazepines Scrn Negative (NEGATIVE) 01/14/17 14:20 U Oth Cocaine Metabols Negative (NEGATIVE) 01/14/17 14:20 U Cannabinoids Screen Negative (NEGATIVE) 01/14/17 14:20 Influenza Typ A,B (EIA) Negative for flu a/b (NEGATIVE) 01/13/17 18:56 Attending/Attestation - Attestation I have personally seen and examined this patient.: Yes I have fully participated in the care of the patient.: Yes I have reviewed all pertinent clinical information, including history, physical exam and plan: Yes Notes (Text): I have seen and examined the patient at bedside. Agree with the above note with the following additions/ exceptions: Briefly this is 56 year old female with history of COPD, CAD? CHF? Dyslipidemia who was admitted for evaluation of CP. Patient was observed in telemetry. She had normal cardiac cath at [facility] in 2010 and had normal echo in 2015. Patient has strong FH of CAD. Last time she smoked was 12 years ago. Serial trop and ekg was negative. She has dyslipidemia and we will start on lipitor. Prelim Echo showed mild pulmonary hypertension. Patient was advised to call the hospital for official result. Teen Counselor recommended to start lasix 20 mg po daily. Also advised patient to have life style modifications. Recommend to have PFT's and outpatient stress test. Patient reported that she ran out of her ventolin and advair which was given. Upon discharge patient will follow up with PMD of choice or [facility] clinic. Dr Akhil Alex \
[2017-01-14 16:52] VITALS: PULSE 75; O2SAT 96
[2017-01-14 17:35] VITALS: BP 109/60
--- NOTE | 2017-01-14 20:33 | CON ---
CARDIOLOGY CONSULTATION DATE: REASON FOR CONSULTATION: Shortness of breath and chest discomfort. HISTORY OF PRESENT ILLNESS: The patient is 56-year-old female who has a history of chronic obstructive lung disease. She quit smoking a few years ago; however, she is on bronchodilator therapy at home. She was evaluated by veneer layer in [place] and underwent cardiac catheterization at [facility] five years ago and was told it was normal. The patient did present because of shortness of breath and chest tightness that she could not explain accurately. The patient did also report to the Emergency Room team numbness in the left finger and bilateral leg swelling. At this time, the patient denies any chest pain and her shortness of breath has improved. SOCIAL HISTORY: Former smoker. MEDICATIONS: Aspirin 81 mg once a day, albuterol inhaler q. 6 hours, Lipitor 10 mg once a day, Lovenox 30 mg subcutaneously once a day, Pepcid 20 mg p.o. once a day. REVIEW OF SYSTEMS: No fever or chills. No dizziness or syncope. PHYSICAL EXAMINATION: GENERAL: Patient is a middle-aged female who does not appear to be in acute distress. VITAL SIGNS: Blood pressure 121/63, heart rate 83, temperature 97.6, respirations 20. HEENT: Normocephalic. CHEST: Clear. HEART: S1, S2 regular. ABDOMEN: Soft. EXTREMITIES: No edema. IMAGING: Head CT scan without contrast, no acute findings. Chest x-ray, questionable bilateral haziness. EKG revealed normal sinus rhythm. Preliminary echo report was consistent with normal ejection fraction and mild pulmonary hypertension. LABORATORY DATA: Today's CBC: Hemoglobin, hematocrit and white count are within normal limits. Today's SMA-7 is within normal limit except for glucose 156 and BUN of 22. Three sets of troponins were negative. Total cholesterol is elevated at 226, LDL elevated to 137, HDL elevated to 71. TSH level is within normal limit. ASSESSMENT: 1. Chest pain, myocardial infarction is ruled out. 2. Exacerbation of chronic obstructive lung disease. 3. Diastolic left ventricular dysfunction. RECOMMENDATIONS: Continue current aspirin, Lipitor, subcutaneous Lovenox. I will start Lasix at 20 mg intravenously daily. Obtain urine for drug screen and serum D-dimer. Bryon Dodson MD
--- NOTE | 2017-01-15 08:25 | CARD ---
APPROVED REPORT EXAM: Two-dimensional and M-mode echocardiogram with Doppler and color Doppler. Other Information Quality : AverageRhythm : INDICATION Chest Pain Congestive Heart Failure 2D DIMENSIONS Left Atrium (2D)2.3 (1.6-4.0cm)IVSd0.9 (0.7-1.1cm) LVDd3.8 (3.9-5.9cm)PWd1.0 (0.7-1.1cm) LVDs2.4 (2.5-4.0cm)FS (%) 37.5 % LVEF (%)68.0 (>50%) M-Mode DIMENSIONS Aortic Root2.60 (2.2-3.7cm)Aortic Cusp Exc.1.40 (1.5-2.0cm) Aortic Valve AoV Peak Oyxabxpa566.0cm/s Mitral Valve E/A ratio0.0 TDI E/Lateral E'0.0E/Medial E'0.0 Tricuspid Valve TR Peak [id number]/sRAP [id number] Peak Gr.25mmHg [id number] LEFT VENTRICLE The left ventricle is normal size. There is normal left ventricular wall thickness. The left ventricular function is normal. The left ventricular ejection fraction is within the normal range. There is normal LV segmental wall motion. RIGHT VENTRICLE The right ventricle is normal size. AORTIC VALVE The aortic valve is normal in structure. MITRAL VALVE The mitral valve is normal in structure. Mitral regurgitation is trace. TRICUSPID VALVE The tricuspid valve is normal in structure. There is trace tricuspid regurgitation. PULMONIC VALVE The pulmonic valve is not well visualized. GREAT VESSELS The aortic root is normal in size. PERICARDIAL EFFUSION There is no pericardial effusion. <Conclusion> The left ventricle is normal size. There is normal left ventricular wall thickness. The left ventricular function is normal.
== END 2017-01-14 18:39 | disposition home or self-care (01) ==
LOC: ED 13:12 → ERH 15:37 → 3RNO 16:59
PROVIDERS: ADMIT Internal Medicine; ATTEND Hospitalist
DX: R07.89 Other chest pain (principal); J44.1 Chronic obstructive pulmonary disease with (acute) exacerbation; I11.0 Hypertensive heart disease with heart failure; I50.30 Unspecified diastolic (congestive) heart failure; I27.20 Pulmonary hypertension, unspecified; E78.5 Hyperlipidemia, unspecified; R51 Headache; Z87.891 Personal history of nicotine dependence; Z88.0 Allergy status to penicillin; Z79.82 Long term (current) use of aspirin
CPT/HCPCS: 36415; 70450; 71010; 80048; 80053; 80061; 80324; 80345; 80346; 80349; 80353; 80358; 80361; 82550; 82803; 83615; 83880; 83992; 84443; 84484; 85025; 85378; 87040; 87804; 93005; 93306; 94640; 96372; 96374; 96375; 99285; G0378; J1650; J1885; J1940; J2765; J2930